=== PATIENT | female | born 1935 | race Caucasian/White ===

== ENCOUNTER 2017-11-22 12:45 | Emergency (ER) | payer MEDICARE ==
[~2017-11-22] VITALS: Ht 157.5 cm; Wt 69.2 kg
[~2017-11-22 12:45] MED LIST: Aspirin Ec PO; EZET10 PO; LATA.005%O EACH EYE; LIPI20TA PO; MULT-135 PO; TOPR25TA PO
[2017-11-22 12:52] VITALS: BP 129/60; PULSE 76; RESP 16; TEMP 97.7; O2SAT 93
--- NOTE | 2017-11-22 13:07 | PD ---
HPI Chief Complaint: Fall Time Seen by Provider: 12:59 Travel History International Travel<30 days: No Contact w/Intl Traveler<30days: No History of Present Illness HPI 82-year-old female complains of right upper arm pain. Patient states that she fell this morning. Patient denies loss of consciousness. Patient denies headache or neck pain. Patient denies any chest pain or shortness of breath. Patient denies abdominal pain. Patient states the pain is sharp pain localized the right upper arm. Patient denies any pain radiation. On a scale of 1-10 the pain is an 8. PFSH Past Medical History Hx Anticoagulant Therapy: Yes (asa 81mg) Atrial Fibrillation: Yes (H/O) Heart Rhythm Problems: Yes (MITRAL REGURG. ) Cardiac Catheterization: Yes Cardiovascular Problems: Yes High Cholesterol: Yes Cerebrovascular Accident: Yes (tia) Endocrine: Yes Genitourinary: No Hypertension: Yes Immune Disorder: No Musculoskeletal: Yes Neurologic: No Reproductive: No Respiratory: No Thyroid Disease: Yes (TAKES SYNTHROID) ?: Not Past Surgical History Abdominal Surgery: Yes (APPENDECTOMY) Appendectomy: Yes Social History Alcohol Use: Yes (~2 GLASSES WINE DAILY) Tobacco Use: No Substance Use: No Allergies-Medications (Allergen,Severity, Reaction): Coded Allergies: No Known Allergies (Verified Adverse Reaction, Unknown, 11/22/17) Reported Meds & Prescriptions Reported Meds & Active Scripts Active [Aspirin Ec] 325 MG Tabec 325 Mg PO DAILY Reported Toprol XL (Metoprolol Succinate) 25 Mg Tab 12.5 Mg PO DAILY Lipitor (Atorvastatin Calcium) 20 Mg Tab 20 Mg PO HS Xalatan Opth Drops (Latanoprost) 0.005% Drops 1 Drop EACH EYE HS Zetia (Ezetimibe) 10 Mg Tab 10 Mg PO DAILY Review of Systems General / Constitutional: No: Fever Eyes: No: Visual changes HENT: No: Headaches Cardiovascular: No: Chest Pain or Discomfort Respiratory: No: Shortness of Breath Gastrointestinal: No: Abdominal Pain Genitourinary: No: Dysuria Musculoskeletal: Positive: Pain Skin: No Rash Neurologic: No: Weakness Psychiatric: No: Depression Endocrine: No: Polydipsia Hematologic/Lymphatic: No: Easy Bruising Physical Exam Narrative GENERAL: Well-nourished, well-developed patient. SKIN: Focused skin assessment warm/dry. HEAD: Normocephalic. EYES: No scleral icterus. No injection or drainage. NECK: Supple, trachea midline. No JVD or lymphadenopathy. CARDIOVASCULAR: Regular rate and rhythm without murmurs, gallops, or rubs. RESPIRATORY: Breath sounds equal bilaterally. No accessory muscle use. GASTROINTESTINAL: Abdomen soft, non-tender, nondistended. MUSCULOSKELETAL: Patient has moderate diffuse tenderness of the right upper arm. Limited range of motion of the shoulder and the elbow secondary to pain. Full range of motion of fingers. Good capillary refill. Sensory motor function distally intact BACK: Nontender without obvious deformity. No CVA tenderness. Neurologic exam normal. Data Data Last Documented VS Vital Signs Date Time Temp Pulse Resp B/P (MAP) Pulse Ox O2 Delivery O2 Flow Rate FiO2 11/22/17 13:13 16 11/22/17 12:52 97.7 76 129/60 (83) 93 Orders Orders Humerus (Min 2vws) (11/22/17 13:03) Splint Or Brace Apply/Monitor (11/22/17 14:21) Ibuprofen (Motrin) (11/22/17 14:45) Ed Discharge Order (11/22/17 14:42) [facility] Medical Decision Making Medical Screen Exam Complete: Yes Emergency Medical Condition: Yes Interpretation(s) X-rays show fracture right humerus Differential Diagnosis Differential diagnosis including contusion, fracture, dislocation. Narrative Course 82-year-old female with right upper arm injury. Sling and swath. Ibuprofen 60 mg p.o. given. Diagnosis Primary Impression: Fracture of right humerus Qualified Codes: S42.291A - Other displaced fracture of upper end of right humerus, initial encounter for closed fracture Patient Instructions: General Instructions Additional Instructions: Follow-up with orthopedist. Take medications as needed for pain. Med/Other Pt SpecificInfo: Prescription(s) given Scripts Tramadol (Ultram) 50 Mg Tab 50 MG PO Q6H Y for PAIN, #20 TAB 0 Refills Prov: Kendall Lucas MD 11/22/17 Disposition: 01 DISCHARGE HOME Condition: Stable Kendall Lucas MD Nov 22, 2017 13:07
--- NOTE | 2017-11-22 14:08 | RADRPT ---
EXAM DATE/TIME: 11/22/2017 13:47 [facility] COMPARISON: No previous studies available for comparison. INDICATIONS : Fell, right upper arm pain MEDICAL HISTORY : A FIB SURGICAL HISTORY : None. ENCOUNTER: Initial ACUITY: 1 day PAIN SCORE: 10/10 LOCATION: Right humerus FINDINGS: The examination demonstrates a 50% displaced fracture of the proximal humeral diaphysis. The remainde r the visualized osseous structures are intact. The visualized portions of pulmonary parenchyma is clear. CONCLUSION: 1. Fracture of the proximal humerus as above. Andrea Edwards MD on November 22, 2017 at 13:59 Board Certified Radiologist. This report was verified electronically.
[2017-11-22] MEDS ORDERED: IBUPROFEN 600 MG TAB PO ONE (14:45)
[2017-11-22] MEDS ORDERED: TRAM50 PO (14:46)
[2017-12-03] MEDS ORDERED: LEVO.05 PO (11:40)
[2017-12-03] MEDS ORDERED: ASPI-183 PO (11:45)
[2017-12-03] MEDS ORDERED: PERC5TAB12 PO (11:45)
== END 2017-11-22 15:01 | disposition home or self-care (01) ==
LOC: PHED 12:45
DX: S42.201A Unspecified fracture of upper end of right humerus, initial encounter for closed fracture (principal); I48.91 Unspecified atrial fibrillation; I10 Essential (primary) hypertension; W19.XXXA Unspecified fall, initial encounter; Z79.01 Long term (current) use of anticoagulants
CPT/HCPCS: 73060; 99283

== ENCOUNTER 2017-12-07 05:37 | Observation (INO) | payer MEDICARE ==
[~2017-12-07] VITALS: Ht 157.5 cm; Wt 67.8 kg
[~2017-12-07 05:37] MED LIST changes: +ASPI-183 PO; -Aspirin Ec PO; +LEVO.05 PO; -MULT-135 PO; +PERC5TAB12 PO
[2017-12-07] MEDS ORDERED: POVIDONE IODINE 5% (ANTISEPSIS KIT) 4 APPLICATIONS EACH NARE PRN (06:15)
[2017-12-07] MEDS ORDERED: LACTATED RINGER'S 1000 ML IV PRN (06:15)
[2017-12-07] MEDS ORDERED: CHLORHEXIDINE GLUCONATE 4% SOLN 120 ML BTL TOPICAL SCH (06:15)
[2017-12-07] MEDS ORDERED: SODIUM CHLORID 0.9% 500 ML IV PRN (06:15)
[2017-12-07] MEDS ORDERED: CHLORHEXIDINE GLUCONATE 2 % 1 PACK (2 CLOTHS) TOPICAL PRN (06:15)
[2017-12-07] MEDS ORDERED: CEFAZOLIN INJ 2,000 MG in SODIUM CHLORIDE 0.9% INJ 100 ML IV SCH (06:15)
[2017-12-07] MEDS ORDERED: METOPROLOL TARTRATE 25 MG TAB PO PRN (06:15)
[2017-12-07] MEDS ORDERED: VANCOMYCIN 1000 MG/NS 250 ML (for <70 kg) IV SCH ×2 (06:15)
[2017-12-07] MEDS ORDERED: ACETAMINOPHEN 1000 MG/100 ML 100 ML IV ONE (06:40)
[2017-12-07] MEDS ORDERED: GENTAMICIN SULFATE 80 MG/2 ML VIAL ONE (07:19)
[2017-12-07 07:43] LABS: BASOPHIL # 0.1 TH/MM3 (0-0.2); BASOPHIL % 0.9 % (0.0-2.0); EOSINOPHIL # 0.3 TH/MM3 (0-0.4); EOSINOPHIL % 3.8 % (0.0-4.0); HEMATOCRIT 38.9 % (35.0-46.0); HEMOGLOBIN 12.8 GM/DL (11.6-15.3); LYMPH % 29.8 % (9.0-44.0); LYMPHOCYTE # 2.1 TH/MM3 (1.0-4.8); MEAN CELL VOLUME 93.6 FL (80.0-100.0); MEAN CORPUSCULAR HEMOGLOBIN 30.9 PG (27.0-34.0); MEAN PLATELET VOLUME 7.8 FL (7.0-11.0); MONOCYTE # 0.6 TH/MM3 (0-0.9); NEUT % 57.5 % (16.0-70.0); PLATELET COUNT 328 TH/MM3 (150-450); RED BLOOD COUNT 4.16 MIL/MM3 (4.00-5.30); RED CELL DISTRIBUTION WIDTH 14.2 % (11.6-17.2); WHITE BLOOD COUNT 6.9 TH/MM3 (4.0-11.0)
--- NOTE | 2017-12-07 08:17 | EKG ---
Date Performed: 12/07/2017 Time Performed: 06:23:49 PTAGE: 82 years EKG: Sinus rhythm NORMAL ECG PREVIOUS TRACING : 08/16/2016 12.49 Since the previous tracing, no significant change noted DOCTOR: Samanta Nielson Interpretating Date/Time 12/07/2017 08:16:41
--- NOTE | 2017-12-07 09:03 | PD.OP ---
cc: Jass Scott MD Operative Report Date of Surgery: Dec 07, 2017 Preoperative Diagnosis: Displaced right proximal humerus shaft fracture Postoperative Diagnosis: Procedure: Open reduction internal fixation right humerus fracture Anesthesia: General Surgeon: Jass Scott Transfer Station Operator(s): ANGELIC Lucas PA-C The surgical procedure was assisted by my physician addictions counselor assistant. My P.A. presence was necessary throughout this case for the manipulation and positioning of the surgical extremity. My P.A. was assisting me throughout the duration of this procedure. The skill set of a physician addictions counselor assistant was medically necessary to complete this procedure. During the surgical case the instructor adjunct surgical technician was working at the back table and the physician addictions counselor assistant was directly assisting me. Operation and Findings: Patient was seen and evaluated preoperatively. Patient was found to have a displaced right proximal humerus shaft fracture. The risks and benefits of surgical and nonsurgical options were discussed in detail and informed consent was obtained for surgery. Patient was brought to the operating room and placed on or table. IV sedation and GETA were administered by anesthesiologist. Antibiotics were given prior to incision. Operative arm and shoulder were prepped with alcohol followed by Hibiclens and draped usual sterile fashion. Timeout procedure was performed. Procedure began with a 6 inch incision over the anterior shoulder. Cephalic vein was identified. A deltopectoral approach was utilized. The fracture was now visualized. Soft tissue was retracted. Fracture site was cleaned with curettes. Attention was now turned to reduction. Gentle traction was applied. The humeral shaft fracture was reduced. Fracture was manipulated to achieve excellent reduction. Multiplanar fluoroscopy confirmed well aligned fracture. Multiple K wires were used to hold provisional fixation. A Synthes proximal humerus plate was selected. Plate was provisionally held in place K wires. 3.5 cortical screws were used to compress plate to bone. Fluoroscopy confirmed appropriate plate placement and fracture reduction. Multiple locking screws were now placed in the humeral head. Screws were predrilled and premeasured for appropriate length. Care was taken not to penetrate the articular surface. Additional screws were placed in the humeral shaft. Final fluoroscopy revealed well aligned fracture with well-placed hardware. Wound was thoroughly irrigated. Fascia was closed with #1 Vicryl, subcutaneous tissues closed with 3 -0 Vicryl, and skin was closed with raffi. Sterile dressings were applied. Patient was placed into a sling. Patient was awakened and transferred to recovery in stable condition. Needle and sponge counts were correct. Jass Scott MD Dec 07, 2017 09:03
[2017-12-07] MEDS ORDERED: PERC7.5T13 PO (09:06)
[2017-12-07] MEDS ORDERED: MORPHINE SULFATE 4 MG/ML INJ IV PUSH PRN (09:15)
[2017-12-07] MEDS ORDERED: diphenhydrAMINE HCL 25 MG CAP PO PRN (09:15)
[2017-12-07] MEDS ORDERED: ONDANSETRON HCL 4 MG/2 ML VIAL IVP PRN (09:15)
[2017-12-07] MEDS ORDERED: *ONDANSETRON 4 MG VIAL PERIprocedural Use ONLY ONE (09:36)
[2017-12-07] MEDS ORDERED: *morphine SULFATE 4 MG/ML PERIprocedure ONLY ONE ×3 (09:36→10:37)
[2017-12-07] MEDS ORDERED: *MEPERIDINE 25 MG INJ VIAL PERIprocedural Use ONLY ONE (09:42)
--- NOTE | 2017-12-07 09:48 | RADRPT ---
EXAM DATE/TIME: 12/07/2017 08:51 [facility] COMPARISON: HUMERUS RIGHT (MIN 2VWS), November 22, 2017, 13:47. INDICATIONS : ORIF right humerus fracture. MEDICAL HISTORY : Unobtainable. SURGICAL HISTORY : Unobtainable. ENCOUNTER: Subsequent ACUITY: 2 weeks PAIN SCORE: Non-responsive. LOCATION: Right humerus. FINDINGS: 4 images were recorded digitally in the operating room using C-arm during placement of a right denise l plate. CONCLUSION: Intraoperative images. Humberto Alexis MD on December 07, 2017 at 9:46 Board Certified Radiologist. This report was verified electronically.
[2017-12-07] MEDS ORDERED: PILL SPLITTER OTHER PRN (10:30)
[2017-12-07] MEDS ORDERED: DO NOT ADM ANY ANTICOAGULANT DRUGS PRN (10:30)
[2017-12-07] MEDS ORDERED: *ENALAPRILAT 1.25 MG/ML VIAL PERIprocedural Use ONLY ONE (10:43)
[2017-12-07] MEDS ORDERED: ERGOCALCIFEROL (VIT D2) 50,000 UNIT CAP PO SCH (11:00)
[2017-12-07] MEDS ORDERED: *PROMETHAZINE 25 MG/ML VIAL PERIprocedural use ONLY ONE (11:14)
[2017-12-07] MEDS ORDERED: ONDANSETRON HCL 4 MG/2 ML VIAL IV ONE (12:00)
[2017-12-07] MEDS ORDERED: GLYCOPYRROLATE 1 MG/5 ML SYRINGE IV PUSH ONE (12:00)
[2017-12-07] MEDS ORDERED: PHENYLEPH/NS 1000 MCG/10 ML SYR IV ONE (12:00)
[2017-12-07] MEDS ORDERED: DEXAMETHASONE SOD PHOS 4 MG/ML VIAL IV ONE (12:00)
[2017-12-07] MEDS ORDERED: ePHEDrine/NS 25 MG/5 ML SYRINGE IV ONE (12:00)
[2017-12-07] MEDS ORDERED: NEOSTIGMINE 5 MG/5 ML SYRINGE IV PUSH ONE (12:00)
[2017-12-07] MEDS ORDERED: ROCURONIUM INJ 50 MG/5 ML SYRINGE IV PUSH ONE (12:00)
[2017-12-07] MEDS ORDERED: PROPOFOL 200 MG/20 ML AMP IV ONE (12:00)
[2017-12-07] MEDS ORDERED: LIDOCAINE HCL 1% PF 5 ML SYRINGE OTHER ONE (12:00)
[2017-12-07] MEDS ORDERED: ceFAZolin INJ 1,000 MG VIAL IV ONE (12:00)
[2017-12-07 12:30] VITALS: BP 153/67; PULSE 67; RESP 17; TEMP 97.3; O2SAT 97
[2017-12-07] MEDS: CALCIUM/VITAMIN D 250 MG/125 U TAB PO SCH ×2 (15:28→17:17)
[2017-12-07] MEDS: oxyCODONE/ACETAMINOPHEN 7.5 MG/325 MG TAB PO PRN ×2 (15:34→20:26)
[2017-12-07 16:00] VITALS: BP 126/59; PULSE 83; RESP 17; TEMP 97.1; O2SAT 94
[2017-12-07] MEDS ORDERED: ceFAZolin 2 GM PREMIX 50 ML IV SCH (17:00)
[2017-12-07] MEDS: CEFAZOLIN INJ 2,000 MG in SODIUM CHLORIDE 0.9% INJ 100 ML IV SCH (17:52)
[2017-12-07 20:00] VITALS: BP 116/56; PULSE 93; RESP 18; TEMP 97.4; O2SAT 93
[2017-12-07] MEDS: DOCUSATE SODIUM 50 MG/SENNA 8.6 MG TAB PO SCH (20:25)
[2017-12-07] MEDS ORDERED: ATORVASTATIN 20 MG TAB PO SCH (21:00)
[2017-12-07] MEDS ORDERED: LATANOPROST 0.005% OPHT SOLN 2.5 ML BTL EACH EYE SCH (21:00)
[2017-12-07 22:09] VITALS: O2SAT 93
[2017-12-08] VITALS (7 sets, daily range): BP systolic 114–123; BP diastolic 55–70; PULSE 82–98; RESP 18; TEMP 97.6–98.2; O2SAT 92–98
[2017-12-08] MEDS: CEFAZOLIN INJ 2,000 MG in SODIUM CHLORIDE 0.9% INJ 100 ML IV SCH ×2 (00:53→07:59)
[2017-12-08] MEDS: oxyCODONE/ACETAMINOPHEN 7.5 MG/325 MG TAB PO PRN ×2 (03:08→13:24)
[2017-12-08] MEDS ORDERED: LEVOTHYROXINE SODIUM 50 MCG TAB PO SCH (06:00)
--- NOTE | 2017-12-08 06:29 | PD.ORT.PN ---
Subjective Subjective Remarks POD 1 s/p ORIF right humeral shaft fx doing well. pain controlled. out of bed. Objective Vitals Vital Signs Date Time Temp Pulse Resp B/P (MAP) Pulse Ox O2 Delivery O2 Flow Rate FiO2 12/08/17 00:00 97.6 98 18 114/55 (74) 93 12/07/17 22:09 93 Nasal Cannula 2.00 12/07/17 20:00 97.4 93 18 116/56 (76) 93 12/07/17 16:34 18 12/07/17 16:00 97.1 83 17 126/59 (81) 94 12/07/17 12:30 97.3 67 17 153/67 (95) 97 12/07/17 10:45 97.1 60 16 150/70 (96) 97 Nasal Cannula 2 12/07/17 10:15 63 16 149/69 (95) 98 Nasal Cannula 2 12/07/17 10:00 60 16 160/68 (98) 98 Nasal Cannula 2 12/07/17 09:45 62 16 168/82 (110) 91 Nasal Cannula 2 12/07/17 09:30 96.1 69 22 160/72 (101) 99 Nasal Cannula 2 I/O 12/07/17 12/07/17 12/07/17 12/08/17 12/08/17 12/08/17 06:59 14:59 22:59 06:59 14:59 22:59 Intake Total 760 ml 120 ml Output Total 50 ml Balance 710 ml 120 ml Intake Oral 360 ml IV Total 120 ml Other 400 ml Output Estimated Blood Loss 50 ml # Voids 1 # Bowel Movements 0 Result Diagram: 12/07/17 0724 Objective Remarks RUE: dressings clean and dry. intact. NVI Assessment & Plan Assessment and Plan 1) Right Humeral Shaft Fx s/p ORIF - POD 1 -NWB -daily dressing changes -pendulums -plan for DC home today -f/u with Dr Garay or PA in 2 weeks Mehrdad Amaya/Bottling Machine Operator PA Dec 08, 2017 06:29
--- NOTE | 2017-12-08 06:31 | HHI.FF ---
Face to Face Verification Diagnosis: (1) Fracture, humerus closed, shaft Occupational Therapy Right UE Weight Bearing: Non WB Right UE Range of Motion: Pendular Nursing Dressing Changes: Daily dressing change, Xeroform, Coverderm/Primapore I have seen patient Mine Sharif on 12/08/17. My clinical findings support the need for the requested home health care services because: Ltd mobility - disease progression I certify that my clinical findings support that this patient is homebound because: Post-op weakness Mehrdad Amaya/Trimmer [employer] Borer Machine Operator PA Dec 08, 2017 06:31
[2017-12-08] MEDS: CALCIUM/VITAMIN D 250 MG/125 U TAB PO SCH ×2 (07:52→13:23)
[2017-12-08] MEDS: DOCUSATE SODIUM 50 MG/SENNA 8.6 MG TAB PO SCH (07:53)
[2017-12-08] MEDS ORDERED: EZETIMIBE 10 MG TAB PO SCH (09:00)
[2017-12-08] MEDS ORDERED: CHOLECALCIFEROL (VIT D3) 1000 UNIT TAB PO SCH (09:00)
[2017-12-08] MEDS ORDERED: ASPIRIN 325 MG TAB PO SCH (09:00)
[2017-12-08] MEDS ORDERED: METOPROLOL SUCCINATE 25 MG EXTENDED RELEASE TAB PO SCH (09:00)
== END 2017-12-08 17:58 | disposition home or self-care (01) ==
LOC: HSDC 05:37 → HSDI 09:05 → N06B 12:34
PROVIDERS: ADMIT Orthopaedic Surgery Orthopaedic Trauma; ATTEND Orthopaedic Surgery Orthopaedic Trauma
DX: S42.301A Unspecified fracture of shaft of humerus, right arm, initial encounter for closed fracture (principal); M19.011 Primary osteoarthritis, right shoulder; M17.10 Unilateral primary osteoarthritis, unspecified knee; M81.0 Age-related osteoporosis without current pathological fracture; E78.00 Pure hypercholesterolemia, unspecified; Y92.89 Other specified places as the place of occurrence of the external cause; E03.9 Hypothyroidism, unspecified; W19.XXXA Unspecified fall, initial encounter; Z01.810 Encounter for preprocedural cardiovascular examination
CPT/HCPCS: 01630; 24516; 73060; 76000; 85025; 92610; 93005; 96365; 96366; 96376; 97110; 97166; 97535; C1713; G0378; G8987; G8988; G8996; G8997; G8998; J0131; J0690; J1100; J1580; J2175; J2270; J2370; J2405; J2550; J2710; J3010; J3370; J7050; J7120